=== PATIENT | male | born 1995 | race Caucasian/White ===

== ENCOUNTER 2018-05-31 14:40 | Emergency (ER) | payer BC, OTHER ==
[2018-05-31] MEDS ORDERED: KETOROLAC 30 MG/ML INJ ONE (16:17)
[2018-05-31] MEDS ORDERED: DEXAMETHASONE 4 MG/ML VIAL ONE ×2 (16:17→17:40)
[2018-05-31] MEDS ORDERED: NA CHLORIDE 0.9% 1,000 ML ONE (16:17)
[2018-05-31] MEDS ORDERED: ONDANSETRON 4 MG/2 ML VIAL ONE (16:17)
--- NOTE | 2018-05-31 16:59 | RAD REPORT ---
EXAM DESCRIPTION: MRI - Lumbar Spine Wo Con - 05/31/2018 4:42 pm CLINICAL HISTORY: Left leg radiculopathy COMPARISON: None. TECHNIQUE: Sagittal T1, T2 and STIR weighted sequences were obtained. Axial T1 and T2 sequences were obtained through the lumbar disc levels. FINDINGS: L1-2 and L2-3 are unremarkable. Mild disc bulge, ligamentum flavum and facet hypertrophy L3-4. Thecal sac measures 9 millimeters. Min imal narrowing of the neural foramina bilaterally Moderate left posterolateral/lateral disc herniation narrows the left neural foramina L4-5. Disc mate rial extruded superiorly L5-S1 unremarkable No abnormal signal within the bones IMPRESSION: Moderate left posterolateral/lateral disc herniation L4-5
[2018-05-31 17:10] LABS: Absolute Lymphocytes (CBC) 2.3 K/uL (0.7-4.9); Absolute Monocytes 0.6 K/uL (0.1-1.3); Basophils % 0.3 % (0-1.3); Eosinophils % 0.4 % (0-4.4); Lymphocytes % 29.2 % (15.3-44.8); MPV 9.6 fL (7.6-11.3); Monocytes % 7.4 % (3.3-12.3); RBC Red Blood Cell Count 4.72 M/uL (4.33-5.43)
[2018-05-31 17:18] LABS: ALT/SGPT 73 U/L (12-78); AST/SGOT 23 U/L (15-37); Albumin 4.8 g/dL (3.4-5.0); Alkaline Phosphatase 83 U/L (45-117); BUN Blood Urea Nitrogen 16 mg/dL (7-18); Bicarbonate 25 mmol/L (21-32); Bilirubin Total 0.5 mg/dL (0.2-1.0); Glucose Level 91 mg/dL (74-106); Potassium 3.9 mmol/L (3.5-5.1); Protein, Total 7.7 g/dL (6.4-8.2); Sodium Level 140 mmol/L (136-145)
[2018-05-31] MEDS ORDERED: DIAZEPAM 10 MG/2 ML INJ SYRINGE ONE (17:24)
--- NOTE | 2018-05-31 17:28 | ER ---
Nurse's Notes [facility] Unit Name: Filemon Treviño Age: 23 yrs Sex: Male : 1995 Arrival Date: 05/31/2018 Time: 14:43 Bed 9 Private MD: Gilberto Beltran V Diagnosis: Sciatica, left side-L 4-L5 moderate disk herniation;Low back pain Presentation: 05/31 14:46 Presenting complaint: Left low back pain that radiates to left leg upon waking today. hb Denies injury. Transition of care: patient was not received from another setting of care. Onset of symptoms was May 31, 2018. Risk Assessment: Do you want to hurt yourself or someone else? Patient reports no desire to harm self or others. Care prior to arrival: None. 14:46 Method Of Arrival: Wheelchair hb 14:46 Acuity: ADRIANO 4 hb 14:56 Initial Sepsis Screen: Does the patient meet any 2 criteria? No. Patient's initial rv sepsis screen is negative. Does the patient have a suspected source of infection? No. Patient's initial sepsis screen is negative. Historical: - Allergies: 14:47 No Known Allergies; hb - Home Meds: 14:47 losartan oral oral [Active]; amlodipine oral [Active]; hb - PMHx: 14:47 Hypertension; hb - PSHx: 14:47 Appendectomy; hb - Immunization history:: Adult Immunizations up to date. - Social history:: Smoking status: Patient/guardian denies using tobacco. - Ebola Screening: : No symptoms or risks identified at this time. - Family history:: not pertinent. Screenin:55 Abuse screen: Denies threats or abuse. Denies injuries from another. Nutritional rv screening: No deficits noted. Tuberculosis screening: No symptoms or risk factors identified. Fall Risk No fall in past 12 months (0 pts). Secondary diagnosis (15 points) impaired mobility, No IV (0 pts). Ambulatory Aid- None/Bed Rest/Nurse Assist (0 pts). Gait- Weak (10 pts.). Mental Status- Oriented to own ability (0 pts). Total Banegas Fall Scale indicates Low Risk Score (25-44 pts). Fall prevention measures have been instituted. Side Rails Up X 2 Placed close to Nursing Station Frequent Obs/Assesments occuring Family Present and informed to notify staff if they need to leave bedside As available Patient and Family Educated on Fall Prevention Program and strategies. Assessment: 14:54 General: Appears in no apparent distress. uncomfortable, Behavior is crying. Pain: rv Complains of pain in back Pain radiates to left leg Pain began 1 hour ago. Neuro: Level of Consciousness is awake, alert, obeys commands, Oriented to person, place, time, situation. Cardiovascular: Capillary refill < 3 seconds. Respiratory: Airway is patent. GI: No signs and/or symptoms were reported involving the gastrointestinal system. : No signs and/or symptoms were reported regarding the genitourinary system. EENT: No signs and/or symptoms were reported regarding the EENT system. Derm: Skin is intact. Musculoskeletal: Reports pain in back since 1 HOUR AGO. 19:10 Reassessment: Patient appears in no apparent distress at this time. Patient and/or rv family updated on plan of care and expected duration. Pain level reassessed. Patient is alert, oriented x 3, equal unlabored respirations, skin warm/dry/pink. AWAITING COPY OF XRAY REPORT. Vital Signs: 14:48 BP 130 / 80; Pulse 88; Resp 18; Temp 97.5; Pulse Ox 100% on R/A; Pain 6/10; hb 17:30 BP 137 / 89; Pulse 98; Resp 19; Pulse Ox 99% on R/A; rv 18:00 BP 147 / 97; Pulse 101; Resp 19; Pulse Ox 100% on R/A; rv 18:30 BP 143 / 82; Pulse 95; Resp 16; Pulse Ox 97% on R/A; rv ED Course: 14:43 Patient arrived in ED. dl4 14:44 Gilberto Beltran MD is Private Physician. dl4 14:47 Triage completed. hb 14:48 Arm band placed on. hb 14:51 Isidro Cid MD is Attending Physician. ricky 14:56 Patient has correct armband on for positive identification. Bed in low position. Call rv light in reach. Side rails up X 1. Adult w/ patient. Pulse ox on. NIBP on. 16:13 Patient moved to MRI via wheelchair. em2 16:19 MRI Lumbar Spine wo Con In Process Unspecified. EDMS 16:53 MRI completed. Patient tolerated well. Patient moved back from MRI. em2 17:23 Lumbar Spine (3 Views) XRAY In Process Unspecified. EDMS 17:25 Gilberto Beltran MD is Referral Physician. [facility] 17:25 Jacky Menchaca MD is Referral Physician. ricky 18:00 No provider procedures requiring assistance completed. Inserted saline lock: 20 gauge rv in right antecubital area, using aseptic technique. Blood collected. 18:35 IV discontinued, bleeding controlled. rv Administered Medications: 16:50 Drug: NS 0.9% 1000 ml Route: IV; Rate: 1 bolus; Site: right antecubital; rv 19:08 Follow up: IV Status: Completed infusion rv 16:50 Drug: TORadol 30 mg Route: IVP; Site: right antecubital; rv 19:08 Follow up: Response: Pain is unchanged, physician notified rv 16:50 Drug: Decadron - Dexamethasone 10 mg Route: IVP; Site: right antecubital; rv 19:09 Follow up: Response: No adverse reaction rv 17:26 Drug: Valium 2 mg Route: IVP; Site: right antecubital; rv 19:09 Follow up: Response: Pain is decreased rv 17:30 Drug: Decadron - Dexamethasone 10 mg Route: IVP; Site: right antecubital; rv 19:09 Follow up: Response: No adverse reaction rv 17:45 Drug: Dilaudid 1 mg Route: IVP; Site: right antecubital; rv 19:09 Follow up: Response: Marked relief of symptoms; Pain is decreased rv 17:52 Drug: Zofran 4 mg Route: IVP; Site: right antecubital; rv 19:09 Follow up: Response: No adverse reaction rv 19:08 Not Given (Duplicate Order): Valium 2 mg IVP once rv Outcome: 17:27 Discharge ordered by . ricky 18:35 Discharged to home via wheelchair. rv 18:35 Condition: good 18:35 Discharge instructions given to patient, family, Instructed on discharge instructions, follow up and referral plans. medication usage, Demonstrated understanding of instructions, follow-up care, medications, Prescriptions given X 4. 19:27 Patient left the ED. rv Signatures: Dispatcher [employer] EDMS Isidro Cid MD MD cha Montes, Enrique em2 Julissa Nicolas RN RN Jenaro Bain RN RN Easton Maurice dl4
--- NOTE | 2018-05-31 17:28 | EDPHYS ---
Physician Documentation [facility] Name: Filemon Treviño Age: 23 yrs Sex: Male : 1995 Arrival Date: 05/31/2018 Time: 14:43 Bed 9 Private MD: Gilberto Beltran V ED Physician Isidro Cid HPI: 05/31 15:48 This 23 yrs old Male presents to ER via Wheelchair with complaints of Back ricky Pain. 15:48 The patient presents with pain that is acute, and decreased range of motion. The ricky symptoms are located in the low back, lumbar area, left low back and right low back. Onset: The symptoms/episode began/occurred 2 day(s) ago. The pain radiates to the right low back. Associated signs and symptoms: The patient has no apparent associated signs or symptoms. Modifying factors: The patient symptoms are alleviated by remaining still, rest. Severity of symptoms: At their worst the symptoms were moderate, in the emergency department the symptoms are unchanged. The patient has not experienced similar symptoms in the past. Historical: - Allergies: 14:47 No Known Allergies; hb - Home Meds: 14:47 losartan oral oral [Active]; amlodipine oral [Active]; hb - PMHx: 14:47 Hypertension; hb - PSHx: 14:47 Appendectomy; hb - Immunization history:: Adult Immunizations up to date. - Social history:: Smoking status: Patient/guardian denies using tobacco. - Ebola Screening: : No symptoms or risks identified at this time. - Family history:: not pertinent. ROS: 15:48 Constitutional: Negative for fever, chills, and weight loss, Eyes: Negative for injury, ricky pain, redness, and discharge, ENT: Negative for injury, pain, and discharge, Neck: Negative for injury, pain, and swelling, Cardiovascular: Negative for chest pain, palpitations, and edema, Respiratory: Negative for shortness of breath, cough, wheezing, and pleuritic chest pain, Abdomen/GI: Negative for abdominal pain, nausea, vomiting, diarrhea, and constipation, : Negative for injury, bleeding, discharge, and swelling, MS/Extremity: Negative for injury and deformity, Skin: Negative for injury, rash, and discoloration, Neuro: Negative for headache, weakness, numbness, tingling, and seizure, Psych: Negative for depression, anxiety, suicide ideation, homicidal ideation, and hallucinations, Allergy/Immunology: Negative for hives, rash, and allergies, Endocrine: Negative for neck swelling, polydipsia, polyuria, polyphagia, and marked weight changes, Hematologic/Lymphatic: Negative for swollen nodes, abnormal bleeding, and unusual bruising. 15:48 Back: Positive for decreased range of motion, pain at rest, radiated pain, of the lumbar area and left low back. Exam: 15:48 Constitutional: This is a well developed, well nourished patient who is awake, alert, ricky and in no acute distress. Head/Face: Normocephalic, atraumatic. Eyes: Pupils equal round and reactive to light, extra-ocular motions intact. Lids and lashes normal. Conjunctiva and sclera are non-icteric and not injected. Cornea within normal limits. Periorbital areas with no swelling, redness, or edema. ENT: Nares patent. No nasal discharge, no septal abnormalities noted. Tympanic membranes are normal and external auditory canals are clear. Oropharynx with no redness, swelling, or masses, exudates, or evidence of obstruction, uvula midline. Mucous membranes moist. Neck: Trachea midline, no thyromegaly or masses palpated, and no cervical lymphadenopathy. Supple, full range of motion without nuchal rigidity, or vertebral point tenderness. No Meningismus. Chest/axilla: Normal chest wall appearance and motion. Nontender with no deformity. No lesions are appreciated. Cardiovascular: Regular rate and rhythm with a normal S1 and S2. No gallops, murmurs, or rubs. Normal PMI, no JVD. No pulse deficits. Respiratory: Lungs have equal breath sounds bilaterally, clear to auscultation and percussion. No rales, rhonchi or wheezes noted. No increased work of breathing, no retractions or nasal flaring. Abdomen/GI: Soft, non-tender, with normal bowel sounds. No distension or tympany. No guarding or rebound. No evidence of tenderness throughout. Male : Normal genitalia with no discharge or lesions. Skin: Warm, dry with normal turgor. Normal color with no rashes, no lesions, and no evidence of cellulitis. Neuro: Awake and alert, GCS 15, oriented to person, place, time, and situation. Cranial nerves II-XII grossly intact. Motor strength 5/5 in all extremities. Sensory grossly intact. Cerebellar exam normal. Normal gait. Psych: Awake, alert, with orientation to person, place and time. Behavior, mood, and affect are within normal limits. 15:48 Back: pain, that is moderate, ROM is decreased, normal spinal alignment noted, CVA tenderness, is absent, muscle spasm, is appreciated in the left low back, left mid back, right mid back and right low back. Vital Signs: 14:48 BP 130 / 80; Pulse 88; Resp 18; Temp 97.5; Pulse Ox 100% on R/A; Pain 6/10; hb 17:30 BP 137 / 89; Pulse 98; Resp 19; Pulse Ox 99% on R/A; rv 18:00 BP 147 / 97; Pulse 101; Resp 19; Pulse Ox 100% on R/A; rv 18:30 BP 143 / 82; Pulse 95; Resp 16; Pulse Ox 97% on R/A; rv MDM: 14:51 Patient medically screened. [facility] 15:51 Data reviewed: vital signs, nurses notes, lab test result(s), radiologic studies, MRI. [facility] 05/31 15:47 Order name: CBC with Diff [facility] 05/31 15:47 Order name: Comprehensive Metabolic Panel; Complete Time: 17:24 [facility] 05/31 15:47 Order name: Lumbar Spine (3 Views) XRAY [facility] 05/31 15:47 Order name: MRI Lumbar Spine wo Con; Complete Time: 17:24 [facility] 05/31 15:47 Order name: Urine Dipstick-Ancillary (obtain specimen) [facility] Administered Medications: 16:50 Drug: NS 0.9% 1000 ml Route: IV; Rate: 1 bolus; Site: right antecubital; rv 19:08 Follow up: IV Status: Completed infusion rv 16:50 Drug: TORadol 30 mg Route: IVP; Site: right antecubital; rv 19:08 Follow up: Response: Pain is unchanged, physician notified rv 16:50 Drug: Decadron - Dexamethasone 10 mg Route: IVP; Site: right antecubital; rv 19:09 Follow up: Response: No adverse reaction rv 17:26 Drug: Valium 2 mg Route: IVP; Site: right antecubital; rv 19:09 Follow up: Response: Pain is decreased rv 17:30 Drug: Decadron - Dexamethasone 10 mg Route: IVP; Site: right antecubital; rv 19:09 Follow up: Response: No adverse reaction rv 17:45 Drug: Dilaudid 1 mg Route: IVP; Site: right antecubital; rv 19:09 Follow up: Response: Marked relief of symptoms; Pain is decreased rv 17:52 Drug: Zofran 4 mg Route: IVP; Site: right antecubital; rv 19:09 Follow up: Response: No adverse reaction rv 19:08 Not Given (Duplicate Order): Valium 2 mg IVP once rv Disposition: 05/31/18 17:27 Discharged to Home. Impression: Sciatica, left side - L 4-L5 moderate disk herniation, Low back pain. - Condition is Stable. - Discharge Instructions: Back Pain, Adult, Musculoskeletal Pain, Sciatica, Back Pain, Adult, [id number], Sciatica, [id number]. - Prescriptions for Ibuprofen 600 mg Oral Tablet - take 1 tablet by ORAL route every 6 hours As needed take with food; 21 tablet. Skelaxin 800 mg Oral Tablet - take 1 tablet by ORAL route every 6 hours As needed; 40 tablet. Tylenol- Codeine #3 300-30 mg Oral Tablet - take 2 tablet by ORAL route every 6 hours As needed; 30 tablet. Dexamethasone 0.5 mg Oral Tablet - take 4 tablet by ORAL route 2 times per day; 40 tablet. - Medication Reconciliation Form, Thank You Letter, Antibiotic Education, Prescription Opioid Use, Work release form form. - Follow up: Gilberto Beltran MD; When: 2 - 3 days; Reason: Recheck today's complaints, Continuance of care, Re-evaluation by your physician. Follow up: Jacky Menchaca MD; When: 2 - 3 days; Reason: Recheck today's complaints, Re-evaluation by your physician. - Problem is new. - Symptoms have improved. Signatures: Dispatcher [employer] Isidro Jones MD MD cha Baxter, Heather, Jenaro Singh RN, RN RN rv Corrections: (The following items were deleted from the chart) 19:27 17:27 05/31/2018 17:27 Discharged to Home. Impression: Sciatica, left side - L 4-L5 rv moderate disk herniation; Low back pain. Condition is Stable. Forms are Medication Reconciliation Form, Thank You Letter, Antibiotic Education, Prescription Opioid Use. Follow up: Gilberto Beltran; When: 2 - 3 days; Reason: Recheck today's complaints, Continuance of care, Re-evaluation by your physician. Follow up: Jacky Menchaca; When: 2 - 3 days; Reason: Recheck today's complaints, Re-evaluation by your physician. Problem is new. Symptoms have improved. ricky
--- NOTE | 2018-05-31 17:37 | RAD REPORT ---
EXAM DESCRIPTION: RAD - Lumbar Spine 3 Views - 05/31/2018 5:20 pm CLINICAL HISTORY: Back pain FINDINGS: The alignment of the lumbar spine is satisfactory. No fracture or dislocation is seen. 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
[2018-05-31] MEDS ORDERED: HYDROMORPHONE HCL 2 MG/ML inj ONE (17:51)
== END 2018-05-31 19:27 | disposition home or self-care (01) ==
LOC: ER 14:40
DX: M54.32 Sciatica, left side (principal); M51.26 Other intervertebral disc displacement, lumbar region; I10 Essential (primary) hypertension
CPT/HCPCS: 36415; 72100; 72148; 80053; 85025; J1170; J2405; J3360; J7030